=== PATIENT | male | born 1960 | race Caucasian/White ===

== ENCOUNTER 2019-10-22 13:42 | Inpatient (IN) | payer MEDICARE, OTHER ==
[~2019-10-22] VITALS: Ht 180.3 cm; Wt 72.3 kg
[2019-10-22] MEDS ORDERED: normal saline 1000ML IV soln IV ONE (14:35)
[2019-10-22] MEDS ORDERED: CefTRIAXone 2gm/D5W 50ml 50 ML IV ONE (14:35)
[2019-10-22 14:54] LABS: BASOPHILS % (AUTO) 0.1 % (0-1); EOSINOPHILS % (AUTO) 0 % (0-6); HEMATOCRIT 33.2 % (42.0-52.0); HEMOGLOBIN 11.2 g/dl (14.0-17.9); LYMPHOCYTES # (AUTO) 0.4 X10'3 (1.1-4.8); LYMPHOCYTES % (AUTO) 2.6 % (21-51); MEAN CORPUSCULAR HEMOGLOBIN 26.8 PG (27.0-31.0); MEAN CORPUSCULAR HGB CONC 33.6 g/dL (33.0-36.5); MEAN CORPUSCULAR VOLUME 79.9 FL (78-98); MEAN PLATELET VOLUME 8.7 FL (7.4-10.4); MONOCYTES # (AUTO) 0.9 X10'3 (0-0.9); MONOCYTES % (AUTO) 5.1 % (2-12); NEUTROPHILS # (AUTO) 15.6 X10'3 (1.8-7.7); NEUTROPHILS % (AUTO) 92.2 % (42-75); PLATELET COUNT 240 X10'3 (140-440); RED BLOOD COUNT 4.16 X10'6 (4.70-6.10); WHITE BLOOD COUNT 16.9 X10'3 (4.5-11.0)
[2019-10-22 15:06] LABS: PARTIAL THROMBOPLASTIN TIME 30 SECONDS (22-32)
[2019-10-22 15:15] LABS: ALANINE AMINOTRANSFERASE 13 U/L (12-78); ALBUMIN 3.3 G/DL (3.4-5.0); ALBUMIN/GLOBULIN RATIO 0.6 (1.1-1.5); ALKALINE PHOSPHATASE 152 IU/L (46-116); ANION GAP 15 (8-16); ASPARTATE AMINO TRANSFERASE 12 U/L (10-37); BILIRUBIN,TOTAL 0.5 MG/DL (0.1-1.0); BLOOD UREA NITROGEN 12 MG/DL (7-18); BUN/CREATININE RATIO 8.5 (5.4-32.0); CALCIUM 9.2 MG/DL (8.5-10.1); CHLORIDE 91 MMOL/L (99-107); CREATININE 1.42 MG/DL (0.60-1.10); GLUCOSE 401 MG/DL (70-104); POTASSIUM 4.1 MMOL/L (3.5-5.1); SODIUM 129 MMOL/L (135-145); TOTAL CARBON DIOXIDE 23.3 MMOL/L (24-32); eGFR 51 ML/MIN
--- NOTE | 2019-10-22 16:03 | NUR ---
PT HAD BEEN SITTING WITH URINAL, PT STOOD TO ATTEMPT TO PROVIDE URINE SAMPLE IN URINAL AGAIN, DR BLAIR INFORMED FLUIDS ALMOST COMPLETE, IV ABX FINISHED, SENT URINE TO LAB, WILL CALL DR WARD OFFICE TO GET NAME OF ABX, HORMONE MED X 2 WEEKS AND NEW HORMONE MED STARTED TODAY
[2019-10-22 16:12] LABS: CLARITY,URINE CLOUDY (Clear); COLOR,URINE YELLOW (Yellow); GLUCOSE, URINE 500 mg/dl (Neg); KETONES,URINE NEGATIVE (Neg); LEUKOCYTE ESTERASE ,URINE LARGE (Neg); NITRITES, URINE NEGATIVE (Neg); OCCULT BLOOD,URINE LARGE (Neg); PROTEIN,URINE 100 mg/dl (Neg); UA COLLECTION TYPE VOIDED; UROBILINOGEN,URINE 0.2 E.U/dL (0.2-1.0)
--- NOTE | 2019-10-22 16:15 | NUR ---
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
[2019-10-22 16:19] LABS: SQUAMOUS EPITHELIAL CELL,UR FEW /LPF (FEW)
[2019-10-22 16:20] LABS: WBC,URINE TNTC /HPF (0-4)
[2019-10-22 16:21] LABS: WBC CLUMPS,URINE MANY /HPF (NEGATIVE)
[2019-10-22 16:23] LABS: MUCUS STRANDS FEW /LPF (Neg)
[2019-10-22 16:25] LABS: BACTERIA,URINE 1+ /HPF (Neg)
[2019-10-22 16:28] LABS: YEAST FEW /HPF (NEGATIVE)
--- NOTE | 2019-10-22 17:10 | NUR ---
PT TAKEN OUT TO CT VIA W/C BY TECH. AT BEDSIDE.
[2019-10-22] MEDS ORDERED: iohexol 300mg/ml 100ml inj. ONE (17:14)
[2019-10-22] MEDS ORDERED: CIPR-230 PO (17:28)
[2019-10-22] MEDS ORDERED: diphenhydrAMINE 50 mg/ml inj IV PRN (18:40)
[2019-10-22] MEDS ORDERED: magnesium Cl slow-release 64mg tablet PO PRN (18:40)
[2019-10-22] MEDS ORDERED: mag hydrox/Alum hydrox/simeth 30ml oral suspension PO PRN (18:40)
[2019-10-22] MEDS ORDERED: magnesium 4gm in 100ml NS 100 ML IV PRN (18:40)
[2019-10-22] MEDS ORDERED: acetaminophen 650mg rectal suppository RC PRN (18:40)
[2019-10-22] MEDS ORDERED: potassium Cl 20 mEq SR tablet PO PRN ×2 (18:40)
[2019-10-22] MEDS ORDERED: morphine 2 MG/ML inj. syringe IV PRN ×2 (18:40)
[2019-10-22] MEDS ORDERED: diphenhydrAMINE 25mg capsule PO PRN (18:40)
[2019-10-22] MEDS ORDERED: ondansetron/PF 4mg/2ml inj IV PRN (18:40)
[2019-10-22] MEDS ORDERED: potassium CL 10mEq/100ml bag 100 ML IV PRN ×2 (18:40)
[2019-10-22] MEDS ORDERED: bisacodyl 10mg suppository rectal RC PRN (18:40)
[2019-10-22] MEDS ORDERED: acetaminophen 325mg tablet PO PRN (18:40)
[2019-10-22] MEDS ORDERED: magnesium hydroxide 30ml (MOM) UD suspension PO PRN (18:40)
[2019-10-22] MEDS ORDERED: HYDROcodone/acetaminophen 5mg/325mg tablet PO PRN (18:40)
[2019-10-22] MEDS ORDERED: magnesium 2GM in 50ml NS 50 ML IV PRN (18:40)
[2019-10-22] MEDS: normal saline 1000ml 1,000 ML IV SCH (19:17)
[2019-10-22] MEDS: K and/or MAG REPLACEMENT MC SCH (20:00)
[2019-10-22] MEDS: heparin, porcine 5000 units/ml vial SQ SCH (20:05)
[2019-10-22] MEDS ORDERED: dextrose ORAL solution 15 GM/59 ML bottle PO PRN ×2 (21:45)
[2019-10-22] MEDS ORDERED: glucagon, human recombinant 1mg kit SUBCUT PRN (21:45)
[2019-10-22] MEDS ORDERED: dextrose 50%-water 50ml dispensing syringe IV PRN ×2 (21:45)
[2019-10-22] MEDS ORDERED: MESSAGE TO PHARMACY PO ONE (21:45)
[2019-10-22] MEDS: acetaminophen 325mg tablet PO PRN (21:48)
[2019-10-22 22:00] VITALS: BP 162/72
--- NOTE | 2019-10-22 22:00 | NUR ---
pt arrived via gurney ambulated with assistance to bed, oriented pt to room will assess.
[2019-10-22] MEDS ORDERED: ibuprofen tablet 400 MG TABLET PO PRN (22:10)
--- NOTE | 2019-10-22 22:20 | NUR ---
Spoke with Dr. kumar in regard to pts temp being 103.1 orally informed him I have 650mg of tylenol, he ordered an additional 600mg of motrin PRN Q8H
[2019-10-22] MEDS: ibuprofen tablet 400 MG TABLET PO PRN (22:23)
[2019-10-22] MEDS: insulin glargine (Lantus) pen - multi-dose SQ SCH (22:43)
--- NOTE | 2019-10-22 22:50 | NUR ---
gAVE PT 12UNITS OF LANTUS FOR 290 BS, GRF;51, ALSO GAVE PT 2UNITS OF HUMALOG, SCANNED PT HAD [id number] BY JUDIE WATERMAN RN, COMPUTER DID NOT SAVE INFORMATION
[2019-10-23 00:17] VITALS: BP 125/69
[2019-10-23] MEDS: normal saline 1000ml 1,000 ML IV SCH ×2 (04:25→17:39)
[2019-10-23 05:13] LABS: BASOPHILS % (AUTO) 0.2 % (0-1); EOSINOPHILS % (AUTO) 0 % (0-6); HEMATOCRIT 26.7 % (42.0-52.0); LYMPHOCYTES # (AUTO) 0.6 X10'3 (1.1-4.8); LYMPHOCYTES % (AUTO) 6.9 % (21-51); MEAN CORPUSCULAR HEMOGLOBIN 26.8 PG (27.0-31.0); MEAN CORPUSCULAR HGB CONC 33.7 g/dL (33.0-36.5); MEAN CORPUSCULAR VOLUME 79.4 FL (78-98); MONOCYTES # (AUTO) 0.5 X10'3 (0-0.9); MONOCYTES % (AUTO) 5.7 % (2-12); NEUTROPHILS # (AUTO) 7.1 X10'3 (1.8-7.7); NEUTROPHILS % (AUTO) 87.2 % (42-75); PLATELET COUNT 171 X10'3 (140-440); RED BLOOD COUNT 3.36 X10'6 (4.70-6.10); RED CELL DISTRIBUTION WIDTH 15.1 % (11.5-14.5); WHITE BLOOD COUNT 8.1 X10'3 (4.5-11.0)
[2019-10-23 05:32] LABS: ALANINE AMINOTRANSFERASE 25 U/L (12-78); ALBUMIN 2.4 G/DL (3.4-5.0); ALBUMIN/GLOBULIN RATIO 0.5 (1.1-1.5); ALKALINE PHOSPHATASE 115 IU/L (46-116); ANION GAP 8 (8-16); ASPARTATE AMINO TRANSFERASE 24 U/L (10-37); BILIRUBIN,TOTAL 0.3 MG/DL (0.1-1.0); BLOOD UREA NITROGEN 11 MG/DL (7-18); BUN/CREATININE RATIO 11.2 (5.4-32.0); CALCIUM 8.2 MG/DL (8.5-10.1); CHLORIDE 102 MMOL/L (99-107); CHOL/HDL RATIO 3.3 (0.00-4.99); CHOLESTEROL 97 MG/DL (0-200); CREATININE 0.98 MG/DL (0.60-1.10); GLUCOSE 240 MG/DL (70-104); HDL CHOLESTEROL 29 MG/DL (35-60); LDL CHOLESTEROL 52 MG/DL (50-100); MAGNESIUM 1.6 MG/DL (1.5-2.4); PHOSPHORUS 3.1 MG/DL (2.3-4.5); POTASSIUM 3.7 MMOL/L (3.5-5.1); SODIUM 136 MMOL/L (135-145); TOTAL CARBON DIOXIDE 25.9 MMOL/L (24-32); TOTAL PROTEIN 6.9 G/DL (6.4-8.2); TRIGLYCERIDES 119 MG/DL (20-135); eGFR 79 ML/MIN
--- NOTE | 2019-10-23 06:50 | NUR ---
Gave report to Lalo MENSAH pt is resting on RA in no apparent distress, call light and items of freq use within reach
[2019-10-23 07:00] VITALS: BP 114/56
[2019-10-23] MEDS: heparin, porcine 5000 units/ml vial SQ SCH (08:00)
[2019-10-23] MEDS: K and/or MAG REPLACEMENT MC SCH ×2 (08:00→20:00)
[2019-10-23] MEDS: CefTRIAXone/D5W-Rocephin 1gm 50 ML IV SCH (08:38)
[2019-10-23] MEDS: insulin Lispro (HumaLOG) vial - multi-dose SQ SCH ×3 (08:50→18:44)
--- NOTE | 2019-10-23 10:47 | NUR ---
Dr. Montalvo notified that patient heparin was held this morning due to patient having hematuria and patient stated this was new. Dr. Montalvo ordered to have heparin dc'd.
[2019-10-23 11:00] VITALS: BP 144/71
[2019-10-23] MEDS: acetaminophen 325mg tablet PO PRN ×2 (11:12→23:21)
[2019-10-23] MEDS: HYDROmorphone 1 mg/ml syringe IV PRN ×2 (11:52→20:31)
[2019-10-23] MEDS: ibuprofen tablet 400 MG TABLET PO PRN (12:45)
[2019-10-23] MEDS: lactose-reduced food (Ensure Enlive) - 237ml bottle PO SCH ×2 (13:00→18:34)
--- NOTE | 2019-10-23 16:22 | NUR ---
DM/Malnutrition Consult: Pt admitted for sepsis r/t UTI. Pt PO intake very poor, 0-25% on a heart healthy, carb controlled diet, not meeting nutrient needs. RD and supply chain intern visit pt at bedside, pt reports poor appetite past 3-4 days, states appetite is improving. Pt has been receiving Ensure Enlive TIDWM, prefers strawberry flavor d/w dietary. Pt states UBW is 190 pounds, currently documented at 159 pounds; pt reports 33 pound weight loss in 1 month which is a significant 17% wt loss in one month. Pt does appear well nourished and does not have visible fat or muscle wasting. Pt meets minimum criteria for malnutrition. Pt current A1C documented at 9.0. Pt reports that he stopped taking his metformin after his surgery which was [address] encourage pt to resume metformin to help control DM and to include MVI with minerals as metformin can deplete B12 and magnesium. RD provided pt with written and verbal high protein/DM education with referral to CDE course and RD contact information. Recommendation: 1. continue heart healthy, carb controlled diet 2. [place] Ensure Enlive TIDWM 3. bowel care as needed 4. Weight per rx Addendum: 10/23/19 at [address] Amended: Links added. Addendum: 10/23/19 at [address] REAL agree with note
[2019-10-23] MEDS ORDERED: iohexol 350MG/ML 100ml bottle IV ONE (16:30)
[2019-10-23] MEDS ORDERED: ENZA40CA PO (18:05)
[2019-10-23 18:30] VITALS: BP 115/62
--- NOTE | 2019-10-23 18:30 | NUR ---
Problems reprioritized. Patient report given, questions answered & plan of care reviewed with Keri MENSAH.
--- NOTE | 2019-10-23 18:30 | NUR ---
Patient in room [facility]. I have received report from Rachel MENSAH and Stephen MENSAH and had the opportunity to ask questions and assume patient care.
[2019-10-23] MEDS: lactobacillus rhamnosus 10,000 MMU CELLS/CAPSULE PO SCH (20:21)
[2019-10-23] MEDS: insulin glargine (Lantus) pen - multi-dose SQ SCH (21:22)
[2019-10-24 00:15] VITALS: BP 132/73
[2019-10-24] MEDS: normal saline 1000ml 1,000 ML IV SCH ×2 (01:51→12:11)
[2019-10-24] MEDS: ibuprofen tablet 400 MG TABLET PO PRN (01:54)
[2019-10-24 05:02] LABS: BASOPHILS % (AUTO) 0.3 % (0-1); EOSINOPHILS % (AUTO) 0.1 % (0-6); HEMATOCRIT 25.2 % (42.0-52.0); HEMOGLOBIN 8.3 g/dl (14.0-17.9); LYMPHOCYTES # (AUTO) 0.6 X10'3 (1.1-4.8); LYMPHOCYTES % (AUTO) 8.4 % (21-51); MEAN CORPUSCULAR HEMOGLOBIN 26.7 PG (27.0-31.0); MEAN CORPUSCULAR HGB CONC 33.1 g/dL (33.0-36.5); MEAN CORPUSCULAR VOLUME 80.6 FL (78-98); MEAN PLATELET VOLUME 9.2 FL (7.4-10.4); MONOCYTES # (AUTO) 0.5 X10'3 (0-0.9); MONOCYTES % (AUTO) 7.6 % (2-12); NEUTROPHILS # (AUTO) 6.1 X10'3 (1.8-7.7); NEUTROPHILS % (AUTO) 83.6 % (42-75); PLATELET COUNT 151 X10'3 (140-440); RED BLOOD COUNT 3.12 X10'6 (4.70-6.10); RED CELL DISTRIBUTION WIDTH 15.5 % (11.5-14.5); WHITE BLOOD COUNT 7.3 X10'3 (4.5-11.0)
[2019-10-24 05:21] LABS: ALANINE AMINOTRANSFERASE 33 U/L (12-78); ALBUMIN 2.2 G/DL (3.4-5.0); ALBUMIN/GLOBULIN RATIO 0.5 (1.1-1.5); ALKALINE PHOSPHATASE 111 IU/L (46-116); ANION GAP 6 (8-16); ASPARTATE AMINO TRANSFERASE 27 U/L (10-37); BILIRUBIN,TOTAL 0.2 MG/DL (0.1-1.0); BLOOD UREA NITROGEN 11 MG/DL (7-18); BUN/CREATININE RATIO 11.5 (5.4-32.0); CALCIUM 8.2 MG/DL (8.5-10.1); CHLORIDE 101 MMOL/L (99-107); CREATININE 0.96 MG/DL (0.60-1.10); GLUCOSE 231 MG/DL (70-104); MAGNESIUM 1.7 MG/DL (1.5-2.4); PHOSPHORUS 2.1 MG/DL (2.3-4.5); SODIUM 133 MMOL/L (135-145); TOTAL CARBON DIOXIDE 25.7 MMOL/L (24-32); TOTAL PROTEIN 6.3 G/DL (6.4-8.2); eGFR 81 ML/MIN
--- NOTE | 2019-10-24 06:38 | NUR ---
Gave report to Kinza MENSAH and Stephen MENSAH pt is resting on RA in no apparent distress, call light and items of freq use within reach.
[2019-10-24 07:00] VITALS: BP 97/52
[2019-10-24] MEDS: lactobacillus rhamnosus 10,000 MMU CELLS/CAPSULE PO SCH ×2 (07:21→20:34)
[2019-10-24] MEDS: CefTRIAXone/D5W-Rocephin 1gm 50 ML IV SCH (07:25)
[2019-10-24] MEDS: K and/or MAG REPLACEMENT MC SCH ×2 (07:26→20:00)
[2019-10-24] MEDS: lactose-reduced food (Ensure Enlive) - 237ml bottle PO SCH ×3 (08:10→18:14)
[2019-10-24] MEDS: insulin Lispro (HumaLOG) vial - multi-dose SQ SCH ×2 (08:15→13:47)
[2019-10-24 11:00] VITALS: BP 104/60
[2019-10-24] MEDS ORDERED: POTASSIUM BICARB 20meq eff tab 20 MEQ TABLET.EFF PO PRN (11:39)
[2019-10-24] MEDS: vancomycin/NS 1 GM ADD-VANTAGE 250 ML IV SCH ×2 (11:39→23:40)
[2019-10-24] MEDS: HYDROmorphone 1 mg/ml syringe IV PRN (11:40)
[2019-10-24] MEDS: POTASSIUM BICARB 20meq eff tab 20 MEQ TABLET.EFF PO PRN ×2 (12:08→17:39)
[2019-10-24] MEDS: acetaminophen 325mg tablet PO PRN ×2 (16:42→19:00)
[2019-10-24 18:00] VITALS: BP 118/62
[2019-10-24] MEDS: ibuprofen 200mg tablet PO PRN (18:13)
--- NOTE | 2019-10-24 18:20 | NUR ---
Patient in room [facility]. I have received report from Kinza Andino RN and had the opportunity to ask questions and assume patient care.
[2019-10-24] MEDS ORDERED: ibuprofen tablet 400 MG TABLET PO ONE (18:45)
[2019-10-24] MEDS ORDERED: acetaminophen 325mg tablet PO ONE (18:50)
[2019-10-24] MEDS ORDERED: ibuprofen 200mg tablet PO ONE (19:00)
--- NOTE | 2019-10-24 19:04 | NUR ---
Pt temperature becoming an issue. No temp in AM but about 1700 he had a 100.2 temp and an hour later 103. tylenol given then, and an hour and a half later still 103, motrin given then. Called Dr Montalvo regarding this and he prescribed another 650mg of tylenol and an extra one time dose 200mg motrin. Both meds given per md order. Ekaterina MENSAH will be primary nurse. Dr Montalvo says RN can give tylenol and motrin at same time if temperature is high and doesn't need to be stagged. Pt family at bedside, slightly sweaty but no signs of distress. Ekaterina Rn, Jan RN aware of high temp and will follow up also aidmala says she will continue to monitor.
[2019-10-24] MEDS: insulin glargine (Lantus) pen - multi-dose SQ SCH (21:48)
[2019-10-24] MEDS: cefepime 2g/NS 100ml ADVANTAGE 100 ML IV SCH (22:56)
[2019-10-25] VITALS: BP 97/54
[2019-10-25] MEDS: normal saline 1000ml 1,000 ML IV SCH ×3 (02:40→13:29)
[2019-10-25 05:21] LABS: BASOPHILS % (AUTO) 0.2 % (0-1); EOSINOPHILS # (AUTO) 0.1 X10'3 (0-0.9); EOSINOPHILS % (AUTO) 1.2 % (0-6); HEMATOCRIT 23.4 % (42.0-52.0); HEMOGLOBIN 7.8 g/dl (14.0-17.9); LYMPHOCYTES # (AUTO) 0.8 X10'3 (1.1-4.8); LYMPHOCYTES % (AUTO) 11.8 % (21-51); MEAN CORPUSCULAR HEMOGLOBIN 26.9 PG (27.0-31.0); MEAN CORPUSCULAR HGB CONC 33.5 g/dL (33.0-36.5); MEAN CORPUSCULAR VOLUME 80.3 FL (78-98); MEAN PLATELET VOLUME 9.2 FL (7.4-10.4); MONOCYTES # (AUTO) 0.6 X10'3 (0-0.9); MONOCYTES % (AUTO) 9.1 % (2-12); NEUTROPHILS # (AUTO) 5.3 X10'3 (1.8-7.7); NEUTROPHILS % (AUTO) 77.7 % (42-75); PLATELET COUNT 170 X10'3 (140-440); RED BLOOD COUNT 2.91 X10'6 (4.70-6.10); RED CELL DISTRIBUTION WIDTH 15.6 % (11.5-14.5); WHITE BLOOD COUNT 6.8 X10'3 (4.5-11.0)
[2019-10-25 05:54] LABS: ALANINE AMINOTRANSFERASE 28 U/L (12-78); ALBUMIN 1.9 G/DL (3.4-5.0); ALBUMIN/GLOBULIN RATIO 0.5 (1.1-1.5); ALKALINE PHOSPHATASE 157 IU/L (46-116); ANION GAP 8 (8-16); ASPARTATE AMINO TRANSFERASE 21 U/L (10-37); BILIRUBIN,TOTAL 0.3 MG/DL (0.1-1.0); BLOOD UREA NITROGEN 7 MG/DL (7-18); BUN/CREATININE RATIO 9.3 (5.4-32.0); CALCIUM 8.3 MG/DL (8.5-10.1); CHLORIDE 104 MMOL/L (99-107); CREATININE 0.75 MG/DL (0.60-1.10); GLUCOSE 160 MG/DL (70-104); MAGNESIUM 1.7 MG/DL (1.5-2.4); PHOSPHORUS 1.4 MG/DL (2.3-4.5); POTASSIUM 3.7 MMOL/L (3.5-5.1); SODIUM 138 MMOL/L (135-145); TOTAL CARBON DIOXIDE 26.3 MMOL/L (24-32); eGFR > 90 ML/MIN
--- NOTE | 2019-10-25 06:27 | NUR ---
Problems reprioritized. Patient report given, questions answered & plan of care reviewed with MAKENNA Daly.
--- NOTE | 2019-10-25 06:54 | NUR ---
Patient in room [facility]. I have received report from Ekaterina MENSAH and had the opportunity to ask questions and assume patient care.
[2019-10-25] MEDS: HYDROmorphone 1 mg/ml syringe IV PRN ×3 (07:36→18:54)
[2019-10-25] MEDS: cefepime 2g/NS 100ml ADVANTAGE 100 ML IV SCH ×2 (07:58→20:09)
[2019-10-25] MEDS: lactobacillus rhamnosus 10,000 MMU CELLS/CAPSULE PO SCH ×2 (07:58→19:11)
[2019-10-25] MEDS: lactose-reduced food (Ensure Enlive) - 237ml bottle PO SCH ×3 (07:59→18:41)
[2019-10-25 08:00] VITALS: BP 129/64
[2019-10-25] MEDS: K and/or MAG REPLACEMENT MC SCH ×2 (08:00→20:00)
[2019-10-25] MEDS: insulin Lispro (HumaLOG) vial - multi-dose SQ SCH ×3 (09:24→18:53)
[2019-10-25 11:00] VITALS: BP 112/63
[2019-10-25] MEDS ORDERED: VANCOMYCIN LEVEL IV ONE (11:30)
[2019-10-25] MEDS ORDERED: VANCOMYCIN 1gm/H2O 200ml PB 250 ML IV SCH (12:00)
[2019-10-25 18:00] VITALS: BP 142/67
--- NOTE | 2019-10-25 18:06 | NUR ---
blood sugar at 1200 was 191, patient given dilaudid for pain,visitor at bedside,all cares given. Report given to Ezra MENSAH
[2019-10-25] MEDS: acetaminophen 325mg tablet PO PRN (18:47)
[2019-10-25] MEDS: ibuprofen 200mg tablet PO PRN (20:08)
[2019-10-25] MEDS: insulin glargine (Lantus) pen - multi-dose SQ SCH (21:32)
[2019-10-26] VITALS: BP 113/70
--- NOTE | 2019-10-26 06:15 | NUR ---
report given to MAKENNA Daly
--- NOTE | 2019-10-26 06:25 | NUR ---
Patient in room [facility]. I have received report from MEET MENSAH and had the opportunity to ask questions and assume patient care.
[2019-10-26 07:00] VITALS: BP 139/68
[2019-10-26 07:28] LABS: ALANINE AMINOTRANSFERASE 26 U/L (12-78); ALBUMIN 1.9 G/DL (3.4-5.0); ALBUMIN/GLOBULIN RATIO 0.5 (1.1-1.5); ALKALINE PHOSPHATASE 169 IU/L (46-116); ANION GAP 6 (8-16); ASPARTATE AMINO TRANSFERASE 17 U/L (10-37); BILIRUBIN,TOTAL 0.2 MG/DL (0.1-1.0); BLOOD UREA NITROGEN 10 MG/DL (7-18); BUN/CREATININE RATIO 13.3 (5.4-32.0); CALCIUM 8.4 MG/DL (8.5-10.1); CHLORIDE 102 MMOL/L (99-107); CREATININE 0.75 MG/DL (0.60-1.10); GLUCOSE 267 MG/DL (70-104); MAGNESIUM 1.7 MG/DL (1.5-2.4); PHOSPHORUS 2.6 MG/DL (2.3-4.5); POTASSIUM 3.7 MMOL/L (3.5-5.1); SODIUM 136 MMOL/L (135-145); TOTAL CARBON DIOXIDE 27.9 MMOL/L (24-32); eGFR > 90 ML/MIN
[2019-10-26 07:30] LABS: BASOPHILS % (AUTO) 0.3 % (0-1); EOSINOPHILS # (AUTO) 0.1 X10'3 (0-0.9); EOSINOPHILS % (AUTO) 1.3 % (0-6); HEMATOCRIT 23.8 % (42.0-52.0); LYMPHOCYTES # (AUTO) 0.8 X10'3 (1.1-4.8); LYMPHOCYTES % (AUTO) 12.4 % (21-51); MEAN CORPUSCULAR HEMOGLOBIN 26.7 PG (27.0-31.0); MEAN CORPUSCULAR HGB CONC 33.7 g/dL (33.0-36.5); MEAN CORPUSCULAR VOLUME 79.2 FL (78-98); MEAN PLATELET VOLUME 8.8 FL (7.4-10.4); MONOCYTES # (AUTO) 0.9 X10'3 (0-0.9); MONOCYTES % (AUTO) 12.8 % (2-12); NEUTROPHILS # (AUTO) 4.9 X10'3 (1.8-7.7); NEUTROPHILS % (AUTO) 73.2 % (42-75); PLATELET COUNT 198 X10'3 (140-440); RED CELL DISTRIBUTION WIDTH 15.9 % (11.5-14.5); WHITE BLOOD COUNT 6.6 X10'3 (4.5-11.0)
[2019-10-26] MEDS: lactobacillus rhamnosus 10,000 MMU CELLS/CAPSULE PO SCH ×2 (07:36→20:16)
[2019-10-26] MEDS: cefepime 2g/NS 100ml ADVANTAGE 100 ML IV SCH ×2 (07:36→21:53)
[2019-10-26] MEDS: HYDROmorphone 1 mg/ml syringe IV PRN ×3 (07:39→20:16)
[2019-10-26] MEDS: lactose-reduced food (Ensure Enlive) - 237ml bottle PO SCH ×3 (08:00→18:38)
[2019-10-26] MEDS: K and/or MAG REPLACEMENT MC SCH ×2 (08:00→20:00)
[2019-10-26] MEDS: insulin Lispro (HumaLOG) vial - multi-dose SQ SCH ×3 (09:15→19:23)
[2019-10-26] MEDS: HYDROcodone/acetaminophen 10/325mg tab PO PRN ×3 (09:18→22:42)
[2019-10-26 11:00] VITALS: BP 120/74
[2019-10-26] MEDS: normal saline 1000ml 1,000 ML IV SCH (11:41)
--- NOTE | 2019-10-26 16:41 | NUR ---
Reassessment: Pt PO remains poor 0-25% avg meals past 4 days not meeting needs. PO 75-100% ONS for main nutrition intake. Pt seen by REAL and reports foods that he likes/dislikes but will not list specifics; only asks that double lemon-[place] diet soda be added for dinner tonight. Dietary notified. LBM 12/14 w/ MoM PRN. Pt reports usually eats at 11AM first thing and meal schedule here has "thrown him off" when it comes to appetite. Will continue to monitor. Recommendation: 1. continue heart healthy, carb controlled diet 2. [place] Ensure Enlive TIDWM 3. bowel care as needed 4. Weight per rx Addendum: 10/26/19 at [address] Amended: Links added. Addendum: 10/26/19 at [address] Reassessment: Pt PO remains poor 0-25% avg meals past 4 days not meeting needs. PO 75-100% ONS for main nutrition intake. Pt seen by RD and reports foods that he likes/dislikes but will not list specifics; only asks that double lemon-[place] diet soda be added for dinner tonight. Dietary notified. LBM 12/14 w/ MoM PRN. Pt reports usually eats at 11AM first thing and meal schedule here has "thrown him off" when it comes to appetite. RD provided pt w/ alternative heart healthy menu write-in list. Will continue to monitor. Recommendation: 1. continue heart healthy, carb controlled diet 2. [place] Ensure Enlive TIDWM 3. bowel care as needed 4. Weight per rx
--- NOTE | 2019-10-26 18:30 | NUR ---
Patient in room [facility]. I have received report from Malika MENSAH and had the opportunity to ask questions and assume patient care.
--- NOTE | 2019-10-26 18:36 | NUR ---
patient very pleasant, medicated for pain q4hrly. All cares given. Given norco 10mg for pain 05/21 and temp 100.[address] Montalvo. Report given to Deanna MENSAH
[2019-10-26 20:00] VITALS: BP 128/59
[2019-10-26] MEDS: acetaminophen 325mg tablet PO PRN (20:16)
[2019-10-26] MEDS: insulin glargine (Lantus) pen - multi-dose SQ SCH (22:20)
[2019-10-27] VITALS: BP 122/72
[2019-10-27] MEDS: HYDROmorphone 1 mg/ml syringe IV PRN ×4 (00:09→20:25)
[2019-10-27 05:19] LABS: BASOPHILS % (AUTO) 0.1 % (0-1); EOSINOPHILS # (AUTO) 0.1 X10'3 (0-0.9); EOSINOPHILS % (AUTO) 0.6 % (0-6); HEMATOCRIT 22.3 % (42.0-52.0); HEMOGLOBIN 7.5 g/dl (14.0-17.9); LYMPHOCYTES # (AUTO) 1.1 X10'3 (1.1-4.8); LYMPHOCYTES % (AUTO) 11.6 % (21-51); MEAN CORPUSCULAR HEMOGLOBIN 26.9 PG (27.0-31.0); MEAN CORPUSCULAR HGB CONC 33.6 g/dL (33.0-36.5); MEAN PLATELET VOLUME 8.4 FL (7.4-10.4); MONOCYTES # (AUTO) 1.1 X10'3 (0-0.9); MONOCYTES % (AUTO) 11.4 % (2-12); NEUTROPHILS # (AUTO) 7.1 X10'3 (1.8-7.7); NEUTROPHILS % (AUTO) 76.3 % (42-75); PLATELET COUNT 230 X10'3 (140-440); RED BLOOD COUNT 2.79 X10'6 (4.70-6.10); WHITE BLOOD COUNT 9.3 X10'3 (4.5-11.0)
[2019-10-27] MEDS: acetaminophen 325mg tablet PO PRN ×2 (05:38→15:45)
[2019-10-27 05:39] LABS: ALANINE AMINOTRANSFERASE 27 U/L (12-78); ALBUMIN/GLOBULIN RATIO 0.5 (1.1-1.5); ALKALINE PHOSPHATASE 179 IU/L (46-116); ANION GAP 6 (8-16); ASPARTATE AMINO TRANSFERASE 25 U/L (10-37); BILIRUBIN,TOTAL 0.3 MG/DL (0.1-1.0); BLOOD UREA NITROGEN 9 MG/DL (7-18); BUN/CREATININE RATIO 11.7 (5.4-32.0); CALCIUM 8.2 MG/DL (8.5-10.1); CHLORIDE 101 MMOL/L (99-107); CREATININE 0.77 MG/DL (0.60-1.10); GLUCOSE 154 MG/DL (70-104); MAGNESIUM 1.6 MG/DL (1.5-2.4); PHOSPHORUS 3.6 MG/DL (2.3-4.5); POTASSIUM 3.8 MMOL/L (3.5-5.1); SODIUM 135 MMOL/L (135-145); TOTAL CARBON DIOXIDE 28.3 MMOL/L (24-32); eGFR > 90 ML/MIN
[2019-10-27] MEDS: normal saline 1000ml 1,000 ML IV SCH (06:46)
--- NOTE | 2019-10-27 06:47 | NUR ---
Problems reprioritized. Patient report given, questions answered & plan of care reviewed with Maryana MENSAH.
--- NOTE | 2019-10-27 06:51 | NUR ---
Patient in room [facility]. I have received report from Deanna MENSAH and had the opportunity to ask questions and assume patient care.
[2019-10-27] MEDS: cefepime 2g/NS 100ml ADVANTAGE 100 ML IV SCH (07:23)
[2019-10-27] MEDS: lactobacillus rhamnosus 10,000 MMU CELLS/CAPSULE PO SCH ×2 (07:24→20:22)
[2019-10-27 08:00] VITALS: BP 127/69
[2019-10-27] MEDS: K and/or MAG REPLACEMENT MC SCH ×2 (08:00→20:00)
[2019-10-27] MEDS: lactose-reduced food (Ensure Enlive) - 237ml bottle PO SCH ×3 (08:00→18:00)
[2019-10-27] MEDS ORDERED: ipratropium/albuterol 3ml nebule NEB PRN ×2 (09:35)
[2019-10-27] MEDS ORDERED: methylPREDNISolone sod succ 125mg/2ml vial IV ONE (09:35)
[2019-10-27] MEDS ORDERED: methylPREDNISolone sod succ 125mg/2ml vial IV PRN (09:35)
[2019-10-27] MEDS: insulin Lispro (HumaLOG) vial - multi-dose SQ SCH ×3 (09:49→19:16)
[2019-10-27 11:00] VITALS: BP 117/65
[2019-10-27] MEDS ORDERED: VANCOMYCIN LEVEL IV ONE (11:30)
--- NOTE | 2019-10-27 18:30 | NUR ---
Patient in room [facility]. I have received report from Maryana MENSAH and had the opportunity to ask questions and assume patient care.
[2019-10-27 20:00] VITALS: BP 125/63
[2019-10-27] MEDS: insulin glargine (Lantus) pen - multi-dose SQ SCH (21:40)
[2019-10-27] MEDS: HYDROcodone/acetaminophen 10/325mg tab PO PRN (23:05)
[2019-10-28] VITALS: BP 125/66
[2019-10-28] MEDS: acetaminophen 325mg tablet PO PRN ×2 (00:23→12:17)
[2019-10-28] MEDS: normal saline 1000ml 1,000 ML IV SCH (00:24)
[2019-10-28] MEDS: HYDROmorphone 1 mg/ml syringe IV PRN ×2 (05:28→08:24)
[2019-10-28] MEDS ORDERED: morphine 4 MG/ML inj SYRINge IV PRN (05:55)
[2019-10-28] MEDS ORDERED: morphine 2 MG/ML inj. syringe IV PRN (05:55)
--- NOTE | 2019-10-28 06:36 | NUR ---
Problems reprioritized. Patient report given, questions answered & plan of care reviewed with Maryana MENSAH.
--- NOTE | 2019-10-28 06:45 | NUR ---
Patient in room [facility]. I have received report from Deanna MENSAH and had the opportunity to ask questions and assume patient care.
[2019-10-28 08:00] VITALS: BP 138/78
[2019-10-28] MEDS: lactose-reduced food (Ensure Enlive) - 237ml bottle PO SCH ×3 (08:00→18:00)
[2019-10-28] MEDS: K and/or MAG REPLACEMENT MC SCH ×2 (08:00→20:00)
[2019-10-28] MEDS: CefTRIAXone 2gm/D5W 50ml 50 ML IV SCH (08:14)
[2019-10-28] MEDS: lactobacillus rhamnosus 10,000 MMU CELLS/CAPSULE PO SCH ×2 (08:14→20:13)
[2019-10-28] MEDS: insulin Lispro (HumaLOG) vial - multi-dose SQ SCH ×3 (09:38→18:46)
[2019-10-28 11:00] VITALS: BP 142/62
[2019-10-28] MEDS ORDERED: VANCOMYCIN LEVEL IV ONE (15:30)
--- NOTE | 2019-10-28 18:30 | NUR ---
Problems reprioritized. Patient report given, questions answered & plan of care reviewed with Miki MENSAH.
--- NOTE | 2019-10-28 18:52 | NUR ---
Patient in room [facility]. I have received report from MAKENNA Mijares and had the opportunity to ask questions and assume patient care.
--- NOTE | 2019-10-28 19:24 | NUR ---
Patient in room [facility]. I have received report from Maryana MENSAH and had the opportunity to ask questions and assume patient care.
[2019-10-28 20:00] VITALS: BP 130/64
[2019-10-28] MEDS: insulin glargine (Lantus) pen - multi-dose SQ SCH (21:39)
[2019-10-29] VITALS: BP 143/88
[2019-10-29] MEDS: normal saline 1000ml 1,000 ML IV SCH (00:31)
--- NOTE | 2019-10-29 06:31 | NUR ---
Problems reprioritized. Patient report given, questions answered & plan of care reviewed with Julieta MENSAH. Pt sleeping on her back, no signs of distress.
[2019-10-29 07:20] VITALS: BP 126/74
[2019-10-29] MEDS: K and/or MAG REPLACEMENT MC SCH ×2 (08:00→20:00)
[2019-10-29] MEDS: lactobacillus rhamnosus 10,000 MMU CELLS/CAPSULE PO SCH ×2 (08:06→19:59)
[2019-10-29] MEDS: CefTRIAXone 2gm/D5W 50ml 50 ML IV SCH (08:06)
[2019-10-29] MEDS: lactose-reduced food (Ensure Enlive) - 237ml bottle PO SCH ×3 (08:30→18:09)
[2019-10-29 11:16] VITALS: BP 127/65
[2019-10-29] MEDS: HYDROmorphone 1 mg/ml syringe IV PRN ×2 (13:06→19:59)
[2019-10-29 13:09] LABS: BASOPHILS % (AUTO) 0.3 % (0-1); EOSINOPHILS # (AUTO) 0.1 X10'3 (0-0.9); EOSINOPHILS % (AUTO) 0.9 % (0-6); HEMATOCRIT 22.3 % (42.0-52.0); HEMOGLOBIN 7.4 g/dl (14.0-17.9); LYMPHOCYTES # (AUTO) 1.1 X10'3 (1.1-4.8); LYMPHOCYTES % (AUTO) 16.7 % (21-51); MEAN CORPUSCULAR HEMOGLOBIN 26.5 PG (27.0-31.0); MEAN CORPUSCULAR HGB CONC 33.2 g/dL (33.0-36.5); MEAN CORPUSCULAR VOLUME 79.8 FL (78-98); MEAN PLATELET VOLUME 7.7 FL (7.4-10.4); MONOCYTES # (AUTO) 0.8 X10'3 (0-0.9); MONOCYTES % (AUTO) 11.9 % (2-12); NEUTROPHILS # (AUTO) 4.8 X10'3 (1.8-7.7); NEUTROPHILS % (AUTO) 70.2 % (42-75); PLATELET COUNT 317 X10'3 (140-440); RED CELL DISTRIBUTION WIDTH 16.4 % (11.5-14.5); WHITE BLOOD COUNT 6.8 X10'3 (4.5-11.0)
[2019-10-29] MEDS: insulin Lispro (HumaLOG) vial - multi-dose SQ SCH ×2 (13:10→19:53)
[2019-10-29 13:12] LABS: ALANINE AMINOTRANSFERASE 20 U/L (12-78); ALBUMIN 2.1 G/DL (3.4-5.0); ALBUMIN/GLOBULIN RATIO 0.5 (1.1-1.5); ALKALINE PHOSPHATASE 146 IU/L (46-116); ANION GAP 6 (8-16); ASPARTATE AMINO TRANSFERASE 13 U/L (10-37); BILIRUBIN,TOTAL 0.2 MG/DL (0.1-1.0); BLOOD UREA NITROGEN 9 MG/DL (7-18); BUN/CREATININE RATIO 13.6 (5.4-32.0); CALCIUM 8.2 MG/DL (8.5-10.1); CHLORIDE 102 MMOL/L (99-107); CREATININE 0.66 MG/DL (0.60-1.10); GLUCOSE 215 MG/DL (70-104); MAGNESIUM 1.8 MG/DL (1.5-2.4); PHOSPHORUS 2.3 MG/DL (2.3-4.5); POTASSIUM 3.6 MMOL/L (3.5-5.1); SODIUM 137 MMOL/L (135-145); TOTAL CARBON DIOXIDE 29.1 MMOL/L (24-32); TOTAL PROTEIN 6.6 G/DL (6.4-8.2); eGFR > 90 ML/MIN
--- NOTE | 2019-10-29 18:22 | NUR ---
Problems reprioritized. Patient report given, questions answered & plan of care reviewed with Megan RN.
[2019-10-29 19:30] VITALS: BP 104/50
[2019-10-29] MEDS: insulin glargine (Lantus) pen - multi-dose SQ SCH (22:02)
[2019-10-29 23:30] VITALS: BP 125/57
[2019-10-30] MEDS: normal saline 1000ml 1,000 ML IV SCH (01:12)
[2019-10-30] MEDS: HYDROmorphone 1 mg/ml syringe IV PRN ×3 (01:16→12:36)
[2019-10-30 05:19] LABS: BASOPHILS % (AUTO) 0.4 % (0-1); EOSINOPHILS # (AUTO) 0.2 X10'3 (0-0.9); EOSINOPHILS % (AUTO) 2.2 % (0-6); LYMPHOCYTES # (AUTO) 1.6 X10'3 (1.1-4.8); LYMPHOCYTES % (AUTO) 23.2 % (21-51); MEAN CORPUSCULAR HEMOGLOBIN 26.8 PG (27.0-31.0); MEAN CORPUSCULAR VOLUME 78.8 FL (78-98); MEAN PLATELET VOLUME 7.8 FL (7.4-10.4); MONOCYTES # (AUTO) 0.8 X10'3 (0-0.9); MONOCYTES % (AUTO) 11.1 % (2-12); NEUTROPHILS # (AUTO) 4.4 X10'3 (1.8-7.7); NEUTROPHILS % (AUTO) 63.1 % (42-75); PLATELET COUNT 327 X10'3 (140-440); RED BLOOD COUNT 2.75 X10'6 (4.70-6.10); RED CELL DISTRIBUTION WIDTH 16.2 % (11.5-14.5)
[2019-10-30 05:30] LABS: ALANINE AMINOTRANSFERASE 23 U/L (12-78); ALBUMIN 2.1 G/DL (3.4-5.0); ALBUMIN/GLOBULIN RATIO 0.5 (1.1-1.5); ALKALINE PHOSPHATASE 139 IU/L (46-116); ANION GAP 3 (8-16); ASPARTATE AMINO TRANSFERASE 15 U/L (10-37); BILIRUBIN,TOTAL 0.2 MG/DL (0.1-1.0); BLOOD UREA NITROGEN 9 MG/DL (7-18); BUN/CREATININE RATIO 13.8 (5.4-32.0); CALCIUM 8.3 MG/DL (8.5-10.1); CHLORIDE 103 MMOL/L (99-107); CREATININE 0.65 MG/DL (0.60-1.10); GLUCOSE 95 MG/DL (70-104); MAGNESIUM 1.9 MG/DL (1.5-2.4); PHOSPHORUS 3.3 MG/DL (2.3-4.5); POTASSIUM 3.8 MMOL/L (3.5-5.1); SODIUM 137 MMOL/L (135-145); TOTAL PROTEIN 6.5 G/DL (6.4-8.2); eGFR > 90 ML/MIN
[2019-10-30 05:39] LABS: HEMATOCRIT 21.7 % (42.0-52.0); HEMOGLOBIN 7.4 g/dl (14.0-17.9)
[2019-10-30] MEDS: lactobacillus rhamnosus 10,000 MMU CELLS/CAPSULE PO SCH (07:10)
[2019-10-30] MEDS: CefTRIAXone 2gm/D5W 50ml 50 ML IV SCH (07:10)
[2019-10-30 07:20] VITALS: BP 143/70
[2019-10-30] MEDS: lactose-reduced food (Ensure Enlive) - 237ml bottle PO SCH ×2 (08:00→12:39)
[2019-10-30] MEDS: K and/or MAG REPLACEMENT MC SCH (08:00)
[2019-10-30 11:50] VITALS: BP 138/71
[2019-10-30] MEDS ORDERED: HYDR-3964 PO (12:38)
[2019-10-30] MEDS: insulin Lispro (HumaLOG) vial - multi-dose SQ SCH (13:02)
--- NOTE | 2019-10-30 14:58 | NUR ---
Patient stable and appropriate for discharge home with . PIV removed. Midline placed, patient going home with midline in place. [place] prescription given to patient, [facility] has been in contact with patient and his , they will be picking up IV antibiotics. All belongings taken from room. Home medications picked up from pharmacy. Discharge instructions given and reviewed with patient and , all questions answered. Diabetes survival skills given to patient.
== END 2019-10-30 14:00 | disposition home health service (06) | DRG 871 ==
LOC: ER 13:44 → ED HOLD 18:41 → SUR 3N 21:35
PROVIDERS: ADMIT Family Medicine; ATTEND Internal Medicine
PROC: BW211ZZ Computerized Tomography (CT Scan) of Abdomen and Pelvis using Low Osmolar Contrast (ICD-10-PCS; principal; 2019-10-22)
DX: A41.01 Sepsis due to Methicillin susceptible Staphylococcus aureus (principal); N17.0 Acute kidney failure with tubular necrosis; N39.0 Urinary tract infection, site not specified; C79.51 Secondary malignant neoplasm of bone; C79.11 Secondary malignant neoplasm of bladder; E87.1 Hypo-osmolality and hyponatremia; E87.2 Acidosis; D64.9 Anemia, unspecified; M54.6 Pain in thoracic spine; R31.9 Hematuria, unspecified; C61 Malignant neoplasm of prostate; E11.65 Type 2 diabetes mellitus with hyperglycemia; B95.61 Methicillin susceptible Staphylococcus aureus infection as the cause of diseases classified elsewhere; R65.20 Severe sepsis without septic shock; Z83.3 Family history of diabetes mellitus; Z85.46 Personal history of malignant neoplasm of prostate; Z90.79 Acquired absence of other genital organ(s); Z87.891 Personal history of nicotine dependence
CPT/HCPCS: 36415; 71045; 72157; 74177; 76937; 80053; 80061; 80202; 81001; 82948; 83036; 83605; 83735; 84100; 84132; 84145; 85025; 85610; 85730; 87040; 87077; 87081; 87088; 87186; 93005; 93306; 93971; 96365; 99285; C8910; G0378; J0692; J0696; J1170; J1644; J1815; J2270; J3370; J7030; Q9967

== ENCOUNTER 2019-12-02 08:23 | Day surgery (SDC) | payer MEDICARE, BC ==
[~2019-12-02] VITALS: Ht 180.3 cm; Wt 76.3 kg
[2019-12-02] VITALS (10 sets, daily range): BP systolic 109–137; BP diastolic 71–90
[~2019-12-02 08:23] MED LIST: ENZA40CA PO
[2019-12-02] MEDS ORDERED: normal saline 1000ml 1,000 ML IV PRN (08:55)
[2019-12-02] MEDS ORDERED: ATOR10TA70 PO (10:00)
[2019-12-02] MEDS ORDERED: METF1000 PO (10:00)
[2019-12-02] MEDS ORDERED: BICA50TA7 PO (10:00)
[2019-12-02] MEDS ORDERED: HYDR-3965 PO (10:00)
[2019-12-02] MEDS ORDERED: LISI-604 PO (10:00)
[2019-12-02 10:13] LABS: BASOPHILS % (AUTO) 0.4 % (0-1); EOSINOPHILS # (AUTO) 0.1 X10'3 (0-0.9); EOSINOPHILS % (AUTO) 1.7 % (0-6); HEMATOCRIT 34.3 % (42.0-52.0); HEMOGLOBIN 11.3 g/dl (14.0-17.9); LYMPHOCYTES # (AUTO) 1.8 X10'3 (1.1-4.8); MEAN CORPUSCULAR HEMOGLOBIN 25.9 PG (27.0-31.0); MEAN CORPUSCULAR HGB CONC 32.8 g/dL (33.0-36.5); MEAN CORPUSCULAR VOLUME 78.9 FL (78-98); MEAN PLATELET VOLUME 8.8 FL (7.4-10.4); MONOCYTES # (AUTO) 0.5 X10'3 (0-0.9); MONOCYTES % (AUTO) 7.5 % (2-12); NEUTROPHILS # (AUTO) 4.1 X10'3 (1.8-7.7); NEUTROPHILS % (AUTO) 63.4 % (42-75); PLATELET COUNT 233 X10'3 (140-440); RED BLOOD COUNT 4.35 X10'6 (4.70-6.10); RED CELL DISTRIBUTION WIDTH 18.2 % (11.5-14.5); WHITE BLOOD COUNT 6.5 X10'3 (4.5-11.0)
[2019-12-02] MEDS ORDERED: fentaNYL/PF 50MCG/1 ML 2ML syringe ONE (10:16)
[2019-12-02] MEDS ORDERED: midazolam 2 mg/2 ml injection ONE (10:16)
--- NOTE | 2019-12-02 11:13 | NUR ---
Pt returned from procedure via [place]. vss. small bandaid to posterior right hip.
== END 2019-12-02 12:15 | disposition home or self-care (01) ==
LOC: SSTAY O 08:23
PROVIDERS: ATTEND Radiology Diagnostic Radiology
DX: M89.8X8 Other specified disorders of bone, other site (principal); C79.51 Secondary malignant neoplasm of bone; C61 Malignant neoplasm of prostate; Z90.79 Acquired absence of other genital organ(s); Z87.891 Personal history of nicotine dependence; Z79.899 Other long term (current) drug therapy; Z80.42 Family history of malignant neoplasm of prostate
CPT/HCPCS: 20225; 36415; 77012; 85025; J2250; J3010; J7030; 99152; 99153